=== PATIENT | female | born 2005 | race Caucasian/White ===

== ENCOUNTER 2024-05-04 01:02 | Emergency (ER) | payer BC, SELFPAY ==
[2024-05-04 01:06] VITALS: BP 134/76
[2024-05-04 01:07] LABS: Glucose - Point of Care 104 mg/dl (70-99)
--- NOTE | 2024-05-04 01:09 | ED.GENMED ---
History of Present Illness
<Devon Adam PA-C - Last Filed: 05/04/24 02:04>
General
Chief Complaint: Alcohol Problem
Source: other (Roommates and friends 19-year-old female with past medical history of ADHD, anxiety and depression presenting to the emergency department)
Time Seen by Provider: 05/04/24 01:08
History of Present Illness
History of Present Illness:
19-year-old female with past medical history of ADHD, anxiety and depression to the emergency department for evaluation of acute alcohol intoxication. Roommates and friends report that they were at a holiday constitution party and patient drank at least half a
bottle of tequila this evening and possibly some other alcohol earlier in the day. Patient started to become less responsive and proceeded to vomit multiple times and then passed out. Friends were concerned for patient's wellbeing so brought her
to the ER for further evaluation. Patient not answering many questions due to her level of intoxication but was able to tell us that she increased her Zoloft dose today but unable to tell us what dose. Patient did states she did not take more than
what she was supposed to take of her Zoloft.
Past History
<Devon Adam PA-C - Last Filed: 05/04/24 02:04>
Past History
ED Past Medical History: Psychiatric
ED Past Surgical History: None
Social History
Tobacco: Non-smoker
Alcohol: Occasional
Drug: None
Personal: Single
Living: with roommate
Review of Systems
<Devon Adam PA-C - Last Filed: 05/04/24 02:04>
Review of Systems
All Other Systems: ROS reviewed and negative except as documented in HPI and ROS
Phy Exam
<Devon Adam PA-C - Last Filed: 05/04/24 02:04>
Physical Exam
Physical Exam:
GENERAL: Obtunded, slightly arouses to sternal rub but maintaining airway
EYE: Sluggish pupils
NECK: Supple
ENT: o/p clr, mmm.
CARDIAC: Tachycardic rate and rhythm, no murmur
LUNGS: Clear breath sounds bilaterally, no acute respiratory distress, no wheezes/rales/rhonchi
ABDOMEN: Soft, without focal tenderness, no r/g, no cvat
NEUROLOGICAL: Unable to assess
SKIN: Cool to the touch and dry, skin intact.
MUSCULOSKELETAL: No edema, well perfused.
PSYCH: Unable to assess
Scores
<Devon Adam PA-C - Last Filed: 05/04/24 02:04>
Heart Failure Risk
Heart Failure Risk Score: Not Applicable
Heart Score for Chest Pain Patients
STEMI patient?: Not applicable
Withdrawal Assessment of Alcohol
Withdrawal Assessment Completed?: Not applicable
Course
<Devon Adam PA-C - Last Filed: 05/04/24 02:04>
Orders/Labs/Results
Orders:
Orders
05/04/24 01:09
0.9% Sodium Chloride 1000 ml [Nss] 1,000 ml IV BOLUS
Test Result ONCE
05/04/24 01:16
Alcohol Urgent
Basic Metabolic Panel Urgent
Complete Blood Count/With Diff Urgent
HCG, Serum Qualitative Screen Urgent
05/04/24 01:23
Ondansetron Injectable [Zofran] 4 mg .ROUTE .[facility]-MED ONE
Ondansetron Injectable [Zofran] 4 mg IV NOW STA
05/04/24 02:04
Ondansetron Injectable [Zofran] 4 mg IV NOW STA
Abnormal Lab Results
05/04/24 05/04/24
01:06 01:16
Hgb 9.9 L g/dL
(12.0-16.0)
Hct 31.0 L %
(37.0-47.0)
MCV 64.9 L fL
(81.0-99.0)
MCH 20.7 L pg
(27.0-31.0)
MCHC 31.9 L g/dL
(33.0-37.0)
RDW 15.9 H %
(11.5-14.5)
MPV 10.7 H fL
(7.4-10.4)
Abs Immat Gran (auto) 0.1 H 10^3/uL
(0-0.05)
Absolute Lymphs (auto) 4.3 H 10^3/uL
(1.2-3.4)
Absolute Monos (auto) 0.8 H 10^3/uL
(0.1-0.6)
Carbon Dioxide 16 L mmol/L
(22-30)
Glucose 113 H mg/dl
(70-99)
POC Glucose 104 H mg/dl
(70-99)
05/04/24 01:16
05/04/24 01:16
Vital Signs
Initial and Last Documented VS:
Initial Vital Signs
Pulse Resp Pulse Ox
108 24 100
05/04/24 01:05 05/04/24 01:05 05/04/24 01:05
Last Documented Vital Signs
Pulse Resp BP Pulse Ox
102 19 135/82 100
05/04/24 03:00 05/04/24 03:00 05/04/24 03:00 05/04/24 03:00
Charleylt;Greyson Caraballo, DO - Last Filed: 05/04/24 05:54>
Orders/Labs/Results
Orders:
Orders
05/04/24 01:09
0.9% Sodium Chloride 1000 ml [Nss] 1,000 ml IV BOLUS
Test Result ONCE
05/04/24 01:16
Alcohol Urgent
Basic Metabolic Panel Urgent
Complete Blood Count/With Diff Urgent
HCG, Serum Qualitative Screen Urgent
05/04/24 01:23
Ondansetron Injectable [Zofran] 4 mg .ROUTE .STK-MED ONE
Ondansetron Injectable [Zofran] 4 mg IV NOW STA
05/04/24 02:04
Ondansetron Injectable [Zofran] 4 mg IV NOW STA
Abnormal Lab Results
05/04/24 05/04/24
01:06 01:16
Hgb 9.9 L g/dL
(12.0-16.0)
Hct 31.0 L %
(37.0-47.0)
MCV 64.9 L fL
(81.0-99.0)
MCH 20.7 L pg
(27.0-31.0)
MCHC 31.9 L g/dL
(33.0-37.0)
RDW 15.9 H %
(11.5-14.5)
MPV 10.7 H fL
(7.4-10.4)
Abs Immat Gran (auto) 0.1 H 10^3/uL
(0-0.05)
Absolute Lymphs (auto) 4.3 H 10^3/uL
(1.2-3.4)
Absolute Monos (auto) 0.8 H 10^3/uL
(0.1-0.6)
Carbon Dioxide 16 L mmol/L
(22-30)
Glucose 113 H mg/dl
(70-99)
POC Glucose 104 H mg/dl
(70-99)
05/04/24 01:16
05/04/24 01:16
Vital Signs
Initial and Last Documented VS:
Initial Vital Signs
Pulse Resp Pulse Ox
108 24 100
05/04/24 01:05 05/04/24 01:05 05/04/24 01:05
Last Documented Vital Signs
Pulse Resp BP Pulse Ox
102 19 135/82 100
05/04/24 03:00 05/04/24 03:00 05/04/24 03:00 05/04/24 03:00
<Devon Adam PA-C - Last Filed: 05/04/24 02:04>
MDM/Problems Addressed
Differential Diagnosis Includes:
Acute alcohol intoxication, friends report no other substance use, no concern for infectious etiology
MDM/Problems Addressed:
19-year-old female presenting to the emergency department for evaluation of acute alcohol intoxication. Patient drank significant quantity of alcohol earlier this evening and is currently obtunded but maintaining her airway. Will check labs and
treat with IV fluids. Will closely monitor.
<Devon Adam PA-C - Last Filed: 05/04/24 02:04>
*Pulse Oximetry
Patient hypoxic: no
*Proof Load Mechanic Interpretation
Rate: normal
Rhythm: sinus
<DO Migel Kendrick Last Filed: 05/04/24 05:54>
*Critical Care Note
Total Time (30-74mins, 75-104mins- exclusive of procedures): Not Applicable
<Devon Adam PA-C - Last Filed: 05/04/24 02:04>
Comment
Comment:
1:40 AM -patient more awake, sitting upright talking to friends. Still clearly very intoxicated. Continuing to closely monitor.
ED Attending Note
<Devon Adam PA-C - Last Filed: 05/04/24 02:04>
-
Portions of this chart may have been created with voice recognition software.� Occasional wrong word or��sound alike� substitutions may have occurred due to the inherent limitations of voice recognition software.
<DO Migel Kendrick Last Filed: 05/04/24 05:54>
ED Attending Note
Patient seen and examined by attending physician: Yes
I performed the substantive portion of visit, reviewed & personally made and approve the management plan that is documented in note by myself or ROSA MARIA.: Yes
ED Attending Note:
19-year-old female presents to the emergency department after drinking 'three quarters of a bottle of tequila 'at Holiday constitution party this evening. She began vomiting and passed out. No head strike. Responsive to painful stimuli. Patient was seen in
conjunction with the ROSA MARIA. I have reviewed and agree with his history and treatment plan. On my independent physical exam patient is somnolent appearing with no obvious signs of trauma. She is responsive to external stimuli. Skin is warm and dry.
No active vomiting at time of exam.
Discharge Plan
Departure
Patient Disposition: Home (Routine Discharge)
Patient with high blood pressure during this ER visit?: No
Discharge Problem:
Acute alcoholic intoxication, Anemia
Instructions: Alcohol Poisoning (DC)
Interventions
Interventions:
*Risk Screen - Suicide Last Done: 05/04/24 01:44
*General Assessment Last Done: 05/04/24 01:44
*Neglect/Abuse Screening Last Done: 05/04/24 01:44
ED- Fall Risk Assessment Last Done: 05/04/24 02:54
*ED COVID-19 Vaccine History Last Done: 05/04/24 01:05
*Nursing Disposition Last Done: 05/04/24 03:27
ED- Neurological Assessment Last Done: 05/04/24 01:42
ED-Psychological Assessment Last Done: 05/04/24 01:42
Discharge Date and Time
Discharge Date/Time: 05/04/24 03:31
Print Language: NIGERIAN
[2024-05-04] MEDS: NSS 1000 IV (01:13)
[2024-05-04] MEDS: ZOFRAN 4 MG IV ×2 (01:25→02:08)
[2024-05-04 01:33] LABS: % Basophils 0.6 % (0-2); % Immature Granulocytes 0.5 % (0-0.5); % Lymphocytes 43.4 % (20.5-51.1); % Monocytes 8.2 % (1.7-9.3); % Neutrophils 46.3 % (42.2-75.2); Absolute Basophils 0.1 10^3/uL (0-0.2); Absolute Eosinophils 0.1 10^3/uL (0-0.7); Absolute Immature Granulocytes 0.1 10^3/uL (0-0.05); Absolute Lymphocytes 4.3 10^3/uL (1.2-3.4); Absolute Monocytes 0.8 10^3/uL (0.1-0.6); Absolute Neutrophils 4.6 10^3/uL (1.4-6.5); Hemoglobin 9.9 g/dL (12.0-16.0); Mean Corp Hgb Conc. 31.9 g/dL (33.0-37.0); Mean Corpuscular Hgb 20.7 pg (27.0-31.0); Mean Corpuscular Volume 64.9 fL (81.0-99.0); Mean Platelet Volume 10.7 fL (7.4-10.4); Nucleated Red Blood Cells % 0 %; Platelet Count 288 10^3/uL (130-400); Red Blood Cell Count 4.78 10^6/uL (4.20-5.40); Red Cell Dist. Width 15.9 % (11.5-14.5)
[2024-05-04 01:42] LABS: HCG, Serum Qualitative Screen Negative
[2024-05-04 01:44] LABS: Blood Urea Nitrogen 15 mg/dl (7-17); Calcium 9.8 mg/dl (8.4-10.2); Carbon Dioxide 16 mmol/L (22-30); Chloride 105 mmol/L (98-107); Glucose 113 mg/dl (70-99); Sodium 143 mmol/L (135-145); eGFR > 60.00
[2024-05-04 01:59] LABS: Alcohol 173 mg/dl
[2024-05-04 02:00] VITALS: BP 121/87
[2024-05-04 03:00] VITALS: BP 135/82
== END 2024-05-04 03:31 | disposition home or self-care (01) ==
LOC: EMR 01:02
PROVIDERS: Physician Assistant Medical; EMERGENCY PHYSICIAN Student in an Organized Health Care Education/Training Program
DX: F10.129 Alcohol abuse with intoxication, unspecified (principal); D64.9 Anemia, unspecified; F90.9 Attention-deficit hyperactivity disorder, unspecified type; F41.8 Other specified anxiety disorders
CPT/HCPCS: 99283; 96374; 96376; 96361; 80048; 82077; 82962; 84703; 85025

== ENCOUNTER 2024-07-15 00:02 | Emergency (ER) | payer BC, SELFPAY ==
--- NOTE | 2024-07-15 00:10 | ED.GENMED ---
History of Present Illness
General
Chief Complaint: Alcohol Problem
Source: witness ([place] roommate)
Exam Limitations: altered mental status
Time Seen by Provider: 07/15/24 00:07
Nursing documentation reviewed up to this point in time: agreed with
History of Present Illness
History of Present Illness:
This is a 19-year-old female presented to the ED/brought by [facility] roommate with concern for alcohol intoxication. Patient had been drinking vodka at a constitution party tonight. Roommate unsure as to exactly what and how much she consumed but did not
believe it was a significant amount. Patient became significantly intoxicated and then unresponsive similar acute alcohol intoxication during ED visit poorly responsive. No falls or injuries.
May 04. According to roommate that episode of intoxication was much more severe than tonight. No episodes of vomiting at the constitution party but patient began retching upon arrival to the ED, vomited very small amount of pinkish liquid.
Patient has history of ADHD, anxiety and depression, maintained on Concerta, Zoloft.
According to roommate no history of drug use.
Past History
Past History
ED Past Medical History: Psychiatric
ED Past Surgical History: None
Social History
Tobacco: Non-smoker
Alcohol: Occasional
Drug: None
Personal: Single
Living: with roommate
Employment: Student
Family History
Family History: Unable to obtain
Phy Exam
Physical Exam
Physical Exam:
GENERAL: 19-year-old female appears her stated age. Significantly intoxicated, obtunded but maintaining her airway. Sporadically briefly answering yes/no questions such as when asked to contact her parents she responds no.
EYE: pupils equal at 5 mm and reactive. anicteric
NECK: Supple, nontender, no meningismus, no significant adenopathy.
ENT: posterior pharynx is clear, oral mucosa is moist. TM clear b/l, nares patent.
CARDIAC: Regular rhythm, mildly tachycardic. no murmur.
LUNGS: Clear breath sounds bilaterally, no acute respiratory distress, no wheezes/rales/rhonchi
ABDOMEN: Soft, nondistended, without focal tenderness
NEUROLOGICAL: Significantly intoxicated, obtunded. Briefly arouses with sternal rub.
SKIN: Warm and dry, normal color, skin intact. Faint pinkish circular rash left upper arm with slightly raised border.
MUSCULOSKELETAL: No C/C/E. peripheral pulses are full and equal b/l. No palpable tenderness.
PSYCH: Unable to assess due to intoxication.
Scores
Withdrawal Assessment of Alcohol
Withdrawal Assessment Completed?: Not applicable
Course
Orders/Labs/Results
Orders:
Orders
07/15/24 00:08
0.9% Sodium Chloride 1000 ml [Nss] 1,000 ml IV BOLUS
Ondansetron Injectable [Zofran] 4 mg IV NOW STA
07/15/24 00:09
Ondansetron Injectable [Zofran] 4 mg .ROUTE .[facility]-MED ONE
Test Result ONCE
07/15/24 00:11
Alcohol Urgent
Complete Blood Count/With Diff Urgent
Comprehensive Metabolic Panel Urgent
HCG, Serum Qualitative Screen Urgent
07/15/24 02:02
KCl 40 Meq/0.9%Sodchl 1000 ml [NSS with KCL 40 MEQ] 40 meq in 1,000 ml IV 250 mls/hr
07/15/24 02:21
Fentanyl, Urine Urgent
Urine Drug Abuse Screen Urgent
Date Specimen was Collected: 07/15/24
Time Specimen was Collected: 02:21
07/15/24 03:24
LYTES [Electrolytes] Urgent
Abnormal Lab Results
07/15/24 07/15/24
00:11 02:21
Hgb 9.7 L g/dL
(12.0-16.0)
Hct 30.2 L %
(37.0-47.0)
MCV 63.2 L fL
(81.0-99.0)
MCH 20.3 L pg
(27.0-31.0)
MCHC 32.1 L g/dL
(33.0-37.0)
RDW 16.2 H %
(11.5-14.5)
Abs Immat Gran (auto) 0.1 H 10^3/uL
(0-0.05)
Immature Gran % 0.8 H %
(0-0.5)
Potassium 2.7 L* mmol/L
(3.5-5.1)
Carbon Dioxide 16 L mmol/L
(22-30)
Glucose 131 H mg/dl
(70-99)
Total Protein 8.5 H g/dl
(6.3-8.2)
Albumin 5.3 H g/dl
(3.5-5.0)
Ur Amphetamines Screen Positive H
(Negative)
07/15/24 00:11
07/15/24 03:24
Vital Signs
Initial and Last Documented VS:
Initial Vital Signs
Temp BP Pulse Ox
97.5 F 121/87 100
07/15/24 00:21 07/15/24 00:21 07/15/24 00:21
Last Documented Vital Signs
Temp BP Pulse Ox
97.5 F 121/87 100
07/15/24 00:21 07/15/24 00:21 07/15/24 00:21
MDM/Problems Addressed
Differential Diagnosis Includes:
Significant alcohol intoxication, obtunded but thus far maintaining her airway and is hemodynamically stable. At this point does not appear to require intubation for airway support/airway protection.
Concern for coingestions such as benzodiazepines/hypnotics/opioids
IV established, will initiate IV normal saline and give Zofran for nausea.
Labs are pending.
Will continue close monitoring
Chronic conditions affecting care: Psychiatric illness
*Pulse Oximetry
Patient hypoxic: no
*All Purpose Clerk Interpretation
Rate: tachycardiac
Interpretation: abnormal
Rhythm: sinus
*Critical Care Note
Total Time (30-74mins, 75-104mins- exclusive of procedures): Not Applicable
Update Note
Update Note:
02:00
Sima is now awake and alert, easily conversant. 2 roommates are accompanying her.
She admits to significant alcohol consumption tonight. Denies drug use but does believe her intoxication was amplified by her usual doses of Zoloft and methylphenidate.
Labs remarkable for mild but stable anemia. Moderate hypokalemia with potassium of 2.7.
Alcohol level elevated at 178.
Will replete potassium via IV and continue to observe.
Discussed importance of discontinuing alcohol consumption.
04:30
Repeat potassium normal at 5.
The initial acute hypokalemia likely acute acidosis related which has since resolved.
Patient remains bright and alert, tolerating oral fluids.
She has spoken with her mother on the phone.
She will be discharged to the care of her sober roommates.
ED Attending Note
-
Portions of this chart may have been created with voice recognition software.� Occasional wrong word or��sound alike� substitutions may have occurred due to the inherent limitations of voice recognition software.
Discharge Plan
Departure
Patient Disposition: Home (Routine Discharge)
Date of Disposition: 07/15/24
Time of Disposition: 04:28
Patient with high blood pressure during this ER visit?: No
Condition: Good
Discharge Problem:
Acute alcohol intoxication, Acute hypokalemia
Instructions: Alcohol Poisoning (DC)
Referrals:
UNKNOWN - PT DOES,NOT KNOW [Family Provider] -
Interventions
Interventions:
*General Assessment Last Done: 07/15/24 00:21
*Neglect/Abuse Screening Last Done: 07/15/24 00:21
*ED COVID-19 Vaccine History Last Done: 07/15/24 00:21
ED- Neurological Assessment Last Done: 07/15/24 00:21
ED-Psychological Assessment Last Done: 07/15/24 00:21
Discharge Date and Time
Print Language: MALTESE
[2024-07-15] MEDS: ZOFRAN 4 MG IV (00:19)
[2024-07-15] MEDS: NSS 1000 IV (00:20)
[2024-07-15 00:21] VITALS: BP 121/87
[2024-07-15 00:31] LABS: % Basophils 0.8 % (0-2); % Eosinophils 1.7 % (0-6); % Immature Granulocytes 0.8 % (0-0.5); % Lymphocytes 35.1 % (20.5-51.1); % Monocytes 6.1 % (1.7-9.3); % Neutrophils 55.5 % (42.2-75.2); Absolute Basophils 0.1 10^3/uL (0-0.2); Absolute Eosinophils 0.1 10^3/uL (0-0.7); Absolute Immature Granulocytes 0.1 10^3/uL (0-0.05); Absolute Lymphocytes 2.7 10^3/uL (1.2-3.4); Absolute Monocytes 0.5 10^3/uL (0.1-0.6); Absolute Neutrophils 4.2 10^3/uL (1.4-6.5); Hematocrit 30.2 % (37.0-47.0); Hemoglobin 9.7 g/dL (12.0-16.0); Mean Corp Hgb Conc. 32.1 g/dL (33.0-37.0); Mean Corpuscular Hgb 20.3 pg (27.0-31.0); Mean Corpuscular Volume 63.2 fL (81.0-99.0); Mean Platelet Volume 10.3 fL (7.4-10.4); Nucleated Red Blood Cells % 0 %; Platelet Count 246 10^3/uL (130-400); Red Blood Cell Count 4.78 10^6/uL (4.20-5.40); Red Cell Dist. Width 16.2 % (11.5-14.5); White Blood Cell Count 7.5 10^3/uL (4.8-10.8)
[2024-07-15 01:00] VITALS: BP 117/65
[2024-07-15 01:14] LABS: ALT (SGPT) 13 U/L (0-35); AST (SGOT) 20 U/L (14-36); Albumin 5.3 g/dl (3.5-5.0); Alcohol 178 mg/dl; Alkaline Phosphatase 53 U/L (38-126); Blood Urea Nitrogen 10 mg/dl (7-17); Calcium 9.5 mg/dl (8.4-10.2); Carbon Dioxide 16 mmol/L (22-30); Chloride 101 mmol/L (98-107); Glucose 131 mg/dl (70-99); HCG, Serum Qualitative Screen Negative; Potassium 2.7 mmol/L (3.5-5.1); Sodium 135 mmol/L (135-145); Total Bilirubin 0.9 mg/dl (0.2-1.3); Total Protein 8.5 g/dl (6.3-8.2); eGFR > 60.00
[2024-07-15 02:00] VITALS: BP 106/74
[2024-07-15] MEDS: NSS with KCL 40 MEQ 1000 IV (02:15)
[2024-07-15 02:49] LABS: Amphetamines Positive (Negative); Barbiturates Negative (Negative); Benzodiazepines Negative (Negative); Buprenorphine Negative (Negative); Cocaine Negative (Negative); Marijuana Negative (Negative); Methadone Negative (Negative); Methamphetamines Negative (Negative); Opiates Negative (Negative); Phencyclidine Negative (Negative); Tricyclic Antidepressants Negative (Negative)
[2024-07-15 03:00] VITALS: BP 105/70
[2024-07-15 04:26] LABS: Carbon Dioxide 23 mmol/L (22-30); Chloride 105 mmol/L (98-107); Sodium 140 mmol/L (135-145)
[2024-07-15 04:57] LABS: Fentanyl, Urine Negative (Negative)
== END 2024-07-15 04:41 | disposition home or self-care (01) ==
LOC: EMR 00:02
PROVIDERS: EMERGENCY PHYSICIAN Emergency Medicine
DX: F10.129 Alcohol abuse with intoxication, unspecified (principal); E87.6 Hypokalemia; D64.9 Anemia, unspecified; F32.A Depression, unspecified; F41.9 Anxiety disorder, unspecified; Z79.899 Other long term (current) drug therapy
CPT/HCPCS: 96365; 96366; 96375; 99284; 80051; 80053; 80306; 80307; 82077; 84703; 85025

== ENCOUNTER 2025-04-28 03:15 | Emergency (ER) | payer BC, SELFPAY ==
[2025-04-28 03:22] LABS: Glucose - Point of Care 124 mg/dl (70-99)
[2025-04-28 03:28] VITALS: BP 118/89
--- NOTE | 2025-04-28 03:35 | ED.GENMED ---
History of Present Illness
General
Chief Complaint: Alcohol Problem
Source: other (Friend)
Exam Limitations: clinical condition and altered mental status
Time Seen by Provider: 04/28/25 03:34
History of Present Illness
History of Present Illness:
See MDM
Past History
Past History
ED Past Medical History: Psychiatric
ED Past Surgical History: None
Social History
Tobacco: Non-smoker
Alcohol: Occasional
Drug: None
Personal: Single
Living: with roommate
Employment: Student
Family History
Family History: Unable to obtain
Phy Exam
Physical Exam
Physical Exam:
See MDM
Scores
Withdrawal Assessment of Alcohol
Withdrawal Assessment Completed?: No
Course
Orders/Labs/Results
Orders:
Orders
04/28/25 03:34
Test Result ONCE
04/28/25 03:35
CT Head W/o Iv Contrast Urgent
Comment:
Reason For Exam: altered
04/28/25 03:36
Ondansetron Injectable [Zofran] 4 mg IV NOW STA
04/28/25 03:43
Alcohol Urgent
Complete Blood Count/With Diff Urgent
Comprehensive Metabolic Panel Urgent
HCG, Serum Qualitative Screen Urgent
04/28/25 04:48
Potassium Chloride [KCl] 40 meq PO NOW STA
04/28/25 04:51
Ondansetron Injectable [Zofran] 4 mg IV NOW STA
Abnormal Lab Results
04/28/25 04/28/25
03:20 03:43
Hgb 9.0 L g/dL
(12.0-16.0)
Hct 28.0 L %
(37.0-47.0)
MCV 63.1 L fL
(81.0-99.0)
MCH 20.3 L pg
(27.0-31.0)
MCHC 32.1 L g/dL
(33.0-37.0)
RDW 16.0 H %
(11.5-14.5)
Immature Gran % 0.6 H %
(0-0.5)
Potassium 3.1 L mmol/L
(3.5-5.1)
Carbon Dioxide 19 L mmol/L
(22-30)
Glucose 131 H mg/dl
(70-99)
POC Glucose 124 H mg/dl
(70-99)
04/28/25 03:43
04/28/25 03:43
Vital Signs
Initial and Last Documented VS:
Initial Vital Signs
Pulse Resp BP
82 22 118/89
04/28/25 03:28 04/28/25 03:28 04/28/25 03:28
Last Documented Vital Signs
Pulse Resp BP
82 22 118/89
04/28/25 03:28 04/28/25 03:28 04/28/25 03:28
MDM/Problems Addressed
Differential Diagnosis Includes:
Note:
CHIEF COMPLAINT(S)
Altered level of consciousness following alcohol consumption.
HISTORY OF PRESENT ILLNESS
The patient is an 20-year-old female presented to the emergency department after consuming alcohol at a bar. Upon returning home, the patient vomited and subsequently lost consciousness while still making noises and vomiting on her side, as reported
by a friend. The friend, who is also a roommate, stated that the patient had been experiencing a migraine earlier in the day. The friend denied any usage of illicit substances such as heroin or cocaine, indicating the involvement of alcohol only.
Patient is extremely intoxicated on exam
PHYSICAL EXAM
General: Intoxicated, intermittently moaning. Will wake up to painful stimuli
Skin: Warm, dry.
Head: Normocephalic, atraumatic
Neck: Appears supple, trachea midline.
Eyes, Ears, Nose, Mouth, and Throat: Moist mucous membranes. Pupils 4 mm equal and reactive
Cardiovascular: No signs of cyanosis
Respiratory: Respirations are non-labored.
Abdomen: Non-distended
Musculoskeletal: No deformities
Neurological: No focal neurological deficit observed.
Psychiatric: Flat affect
PLAN
- Monitor the patients respiratory status and ensure airway protection.
- Initiate intravenous (IV) access for hydration and potential medications.
- Conduct a computed tomography (CT) scan of the head to rule out any intracranial pathology, given the history of a severe migraine.
DIFFERENTIAL DIAGNOSIS
The differential diagnosis includes, in no particular order and is not limited to:
- Acute alcohol intoxication
- Migraine headache
- Intracranial hemorrhage
- Hypoglycemia
- Drug intoxication (despite denial of other substances)
- Electrolyte imbalance
- Central nervous system infection
- Seizure
- Trauma
- Acute confusional state
SUMMARY OF ENCOUNTER
The patient was brought to the emergency department by a friend following an episode of vomiting and altered mental status after drinking alcohol. Upon evaluation, the patient was found to be protecting her airway and in no immediate distress. A
decision was made to monitor her closely, establish IV access, and perform a CT scan of the head to rule out any neurological complications.
DIAGNOSIS
- Suspected acute alcohol intoxication (ICD-10: F10.920)
- Headache (ICD-10: R51.9)
Note:
CHIEF COMPLAINT(S)
Altered level of consciousness following alcohol consumption.
HISTORY OF PRESENT ILLNESS
The patient is an 17-year-old female presented to the emergency department after consuming alcohol at a bar. Upon returning home, the patient vomited and subsequently lost consciousness while still making noises and vomiting on her side, as reported
by a friend. The friend, who is also a roommate, stated that the patient had been experiencing a migraine earlier in the day. The friend denied any usage of illicit substances such as heroin or cocaine, indicating the involvement of alcohol only.
PHYSICAL EXAM
- The patients pupils were checked to ensure they were not pinpoint.
- The patient was observed to be protecting her airway and was not in immediate respiratory distress.
PLAN
- Monitor the patients respiratory status and ensure airway protection.
- Initiate intravenous (IV) access for hydration and potential medications.
- Conduct a computed tomography (CT) scan of the head to rule out any intracranial pathology, given the history of a severe migraine.
DIFFERENTIAL DIAGNOSIS
The differential diagnosis includes, in no particular order and is not limited to:
- Acute alcohol intoxication
- Migraine headache
- Intracranial hemorrhage
- Hypoglycemia
- Drug intoxication (despite denial of other substances)
- Electrolyte imbalance
- Central nervous system infection
- Seizure
- Trauma
- Acute confusional state
SUMMARY OF ENCOUNTER
The patient was brought to the emergency department by a friend following an episode of vomiting and altered mental status after drinking alcohol. Upon evaluation, the patient was found to be protecting her airway and in no immediate distress. A
decision was made to monitor her closely, establish IV access, and perform a CT scan of the head to rule out any neurological complications.
DIAGNOSIS
- Suspected acute alcohol intoxication (ICD-10: F10.920)
- Headache (ICD-10: R51.9)
CARE-UPDATE
04/28/25 - 05:34
The patient is now more alert and responsive. Despite an elevated alcohol level, the patient is answering questions appropriately, indicating improved cognitive status.
Disposition:
SUMMARY OF ENCOUNTER
The patient was seen in the emergency department due to altered mental status following alcohol consumption. After observation and evaluation, it was determined that the symptoms were related to acute alcohol intoxication. A CT scan of the head was
performed and returned negative for any acute intracranial pathology. Over time, the patient became more alert and responsive.
REASSESSMENT
Upon prolonged observation, the patient became awake and alert.
PLAN
The plan included monitoring the patients respiratory status, ensuring airway protection, and hydration through intravenous access.
INDEPENDENT REVIEW OF LABS AND INTERPRETATION OF TESTS
My independent interpretation of the CT scan of the head is negative for any acute intracranial pathology.
PATIENT EDUCATION AND COUNSELING
The patient was informed about the dangers of alcohol and acknowledged the information.
FOLLOW-UP INSTRUCTIONS
The patient is advised to follow up with their primary care physician for further evaluation and support regarding alcohol use.
MEDICAL DECISION MAKING
- Complexity of Data Reviewed: Differential diagnosis considered included acute alcohol intoxication, migraine headache, intracranial hemorrhage, hypoglycemia, drug intoxication, electrolyte imbalance, central nervous system infection, seizure,
trauma, and acute confusional state.
- Data:
Category 1
My independent interpretation of the CT scan of the head is negative for any acute findings. Clinical information was obtained from an independent historian, the patients friend.
-Risk: Consideration of Admission/Observation: Escalation of care including admission/observation was considered given the complexity and risk of the patients presenting complaint. However, ultimately, the patient is safe for outpatient management
with close follow-up. Reasoning: Work-up is reassuring, does not reveal any acute life/organ threatening processes, patients symptoms improved upon reevaluation, reexamination is reassuring, vitals are stable, patient agreeable with discharge,
reliable for follow-up.
DIAGNOSIS
- Suspected acute alcohol intoxication (ICD-10: F10.920)
- Headache (ICD-10: R51.9)
*Pulse Oximetry
Patient hypoxic: no
*Critical Care Note
Total Time (30-74mins, 75-104mins- exclusive of procedures): Not Applicable
Update Note
Update Note:
5:55 AM patient apparently stating that she drank that much alcohol for purposeful self-harm. Will have crisis evaluate. Patient is still technically intoxicated
ED Attending Note
-
Portions of this chart may have been created with voice recognition software.� Occasional wrong word or��sound alike� substitutions may have occurred due to the inherent limitations of voice recognition software.
Discharge Plan
Departure
Patient Disposition: Home (Routine Discharge)
Date of Disposition: 04/28/25
Time of Disposition: 05:35
Patient with high blood pressure during this ER visit?: No
Discharge Problem:
Alcohol intoxication
Instructions: Alcohol intoxication - ED (DC)
Referrals:
NONE,* [Family Provider, Internal Medicine]
Activity Restrictions/Additional Instructions:
Please return for any worsening symptoms.
You may return at any time if you have further concerns.
Interventions
Interventions:
*Risk Screen - Suicide Last Done: 04/28/25 03:28
*General Assessment Last Done: 04/28/25 03:28
*Neglect/Abuse Screening Last Done: 04/28/25 03:28
ED- Neurological Assessment Last Done: 04/28/25 03:33
ED-Psychological Assessment Last Done: 04/28/25 03:33
Discharge Date and Time
Print Language: AFGHAN
[2025-04-28] MEDS: ZOFRAN 4 MG IV ×2 (03:43→04:54)
[2025-04-28 03:50] VITALS: BP 119/83
[2025-04-28 03:57] LABS: Hematocrit 28.0 % (37.0-47.0); Hemoglobin 9.0 g/dL (12.0-16.0); Mean Corp Hgb Conc. 32.1 g/dL (33.0-37.0); Mean Corpuscular Volume 63.1 fL (81.0-99.0); Nucleated Red Blood Cells % 0 %; Platelet Count 190 10^3/uL (130-400); Red Cell Dist. Width 16.0 % (11.5-14.5)
[2025-04-28 04:03] LABS: HCG, Serum Qualitative Screen Negative
[2025-04-28 04:07] LABS: ALT (SGPT) 14 U/L (0-35); AST (SGOT) 19 U/L (14-36); Albumin 5.0 g/dl (3.5-5.0); Alkaline Phosphatase 55 U/L (38-126); Blood Urea Nitrogen 12 mg/dl (7-17); Calcium 9.1 mg/dl (8.4-10.2); Carbon Dioxide 19 mmol/L (22-30); Chloride 105 mmol/L (98-107); Glucose 131 mg/dl (70-99); Potassium 3.1 mmol/L (3.5-5.1); Sodium 136 mmol/L (135-145); Total Protein 7.8 g/dl (6.3-8.2); eGFR > 60.00
--- NOTE | 2025-04-28 04:40 | PTCARENOTE ---
Patient unable to complete CT scan due to vomiting
[2025-04-28 05:00] VITALS: BP 109/71
--- NOTE | 2025-04-28 05:56 | PTCARENOTE ---
patient told roommates in the room that she drank this much to 'kill herslef' and 'end it all'. patient still appears intoxicated, and charge nurse made aware
[2025-04-28 06:00] VITALS: BP 109/71
[2025-04-28 07:00] VITALS: BP 111/76
[2025-04-28] MEDS: KCL 40 MEQ PO (08:10)
== END 2025-04-28 08:18 | disposition home or self-care (01) ==
LOC: EMR 03:15
PROVIDERS: EMERGENCY PHYSICIAN Student in an Organized Health Care Education/Training Program
DX: F10.129 Alcohol abuse with intoxication, unspecified (principal)
CPT/HCPCS: 99284; 96374; 96376; 70450; 80053; 82077; 82962; 84703; 85025; 93005